=== PATIENT | female | born 1980 | race Caucasian/White ===

== ENCOUNTER 2023-10-13 09:59 | Emergency (ER) | payer OTHER, SELFPAY ==
--- NOTE | 2023-10-13 10:08 | ED.URI ---
HPI - URI/Sore Throat General Chief Complaint: Upper Respiratory Infection Stated Complaint: Sore Throat Time Seen by Provider: 10/13/23 10:24 Source: patient and RN notes reviewed Mode of arrival: ambulatory Limitations: no limitations History of Present Illness HPI Narrative: 43-year-old female presents with concern for 3 day history of nasal congestion, drainage, cough, sore throat, hoarse voice. She reports body aches, chills, she has not measured a temperature. She has not taken anything [id number]. She denies known sick contacts. MD elicited complaint: cough and sore throat Related Data Home Medications Medication Instructions Recorded Confirmed atorvastatin 20 mg tablet 20 mg PO DAILY 10/13/23 10/13/23 buspirone 10 mg tablet 10 mg PO DAILY 10/13/23 10/13/23 gabapentin 100 mg capsule 200 mg PO TID 10/13/23 10/13/23 lamotrigine 200 mg tablet 200 mg PO HS 10/13/23 10/13/23 metformin 500 mg tablet 500 mg PO BID 10/13/23 10/13/23 pantoprazole 40 mg tablet,delayed 40 mg PO BID 10/13/23 10/13/23 release sertraline 50 mg tablet 50 mg PO DAILY 10/13/23 10/13/23 Allergies Allergy/AdvReac Type Severity Reaction Status Date / Time Penicillins Allergy Mild Rash Verified 10/13/23 10:00 sumatriptan Allergy Mild Rash Verified 10/13/23 10:00 Review of Systems Review of Systems: CONSTITUTIONAL: Reports malaise, chills, sweats. Denies fever. EYES: Denies visual changes, redness, or discharge. ENT: Reports rhinorrhea, congestion, and sore throat. CARDIOVASCULAR: Denies chest pain, palpitations, or edema. RESPIRATORY: Reports cough. Denies dyspnea. GASTROINTESTINAL: Denies abdominal pain, nausea, vomiting, diarrhea SKIN: Denies rash or itching. MUSCULOSKELETAL: Reports myalgia. NEUROLOGIC: Denies headache. All systems reviewed & are unremarkable except as noted in HPI and below PMFSH Comments At time of signature, agree with nursing past medical, surgical, social and family history. There is no relevant family history pertinent to the presenting complaint Exam Narrative: GENERAL: Nontoxic-appearing, well-nourished, and in no acute distress. HEAD: Normocephalic EYES: PERRLA, conjunctivae clear ENT: Nares clear. Mucous membranes moist. TM pearly leon with dull light reflex bilaterally; no tragal tenderness. Oropharynx erythematous without lesions. Tonsils enlarged and without exudate, no drooling, no hoarseness, no trismus, uvula midline. NECK: Supple. No lymphadenopathy CHEST: Clear to auscultation, breath sounds equal. No wheezing, rhonchi, rales, or stridor. No respiratory distress, speaks in full sentences. HEART: Regular rate and rhythm. No murmur heard. SKIN: Warm, dry, no rash. NEURO: Alert and oriented x3. PSYCH: Normal mood and affect Course Course Emergency Course: Patient is aware of diagnosis, understands and agrees to treatment plan. Anticipatory guidance given. Patient agrees to follow-up as directed and is aware of reasons to seek care at the emergency department. Portions of this record may have been created with voice recognition software Level of Care: Express Care Visit Vital Signs Vital signs: Reviewed. MDM - URI/Sore Throat MDM Narrative Medical decision making narrative: Differential diagnosis considered: Frye virus, strep pharyngitis, allergic rhinitis, upper respiratory tract infection, sinusitis, rhinosinusitis, nasopharyngitis. viral pharyngitis, otitis media, otitis externa, pneumonia, bronchitis, viral cough syndrome, viral syndrome, and influenza. Exam findings show no acute concerns or changes; patient is non-toxic appearing and is in no distress. Patient is appropriate for outpatient treatment and follow-up. Lab Data Attestation: I reviewed the patient's lab results. Critical Care Time Critical Care Time Critical Care Time: No Discharge Plan Discharge Clinical Impression: Acute streptococcal pharyngitis Patient Disposition: Home, Self-Care Condition:
[2023-10-13 10:17] VITALS: BP 124/58; PULSE 96; RESP 22; TEMP 37.8; O2SAT 96
== END 2023-10-13 10:35 | disposition home or self-care (01) ==
PROVIDERS: Emergency Provider Nurse Practitioner; PCP Physician Assistant
DX: J02.0 Streptococcal pharyngitis (principal); Z20.822 Contact with and (suspected) exposure to COVID-19; E78.00 Pure hypercholesterolemia, unspecified; K21.9 Gastro-esophageal reflux disease without esophagitis; R73.03 Prediabetes; F41.9 Anxiety disorder, unspecified; F32.A Depression, unspecified
CPT/HCPCS: 87426; 87880; 99203; G0463

== ENCOUNTER 2024-02-02 08:22 | Emergency (ER) | payer OTHER, SELFPAY ==
[2024-02-02 08:31] VITALS: BP 155/85; PULSE 88; RESP 19; TEMP 36.4; O2SAT 94
--- NOTE | 2024-02-02 08:51 | ED_ITS ---
HPI - URI/Sore Throat General Chief Complaint: Upper Respiratory Infection Stated Complaint: Headache/Sore Throat Time Seen by Provider: 02/02/24 08:51 Source: patient, RN notes reviewed and old records reviewed Mode of arrival: ambulatory Limitations: no limitations History of Present Illness HPI Narrative: Patient presents with complaints of headache and sore throat 3 days ago. She has been taking Excedrin and ibuprofen with minimal relief. She denies any fever, chills, sweats. Related Data Home Medications Medication Instructions Recorded Confirmed adalimumab-adaz 40 mg/0.4 mL 40 mg subcut WEEKLY 10/13/23 10/13/23 subcutaneous pen injector (Hyrimoz(CF) Pen) atorvastatin 20 mg tablet 20 mg PO DAILY 10/13/23 10/13/23 buspirone 10 mg tablet 10 mg PO DAILY 10/13/23 10/13/23 lamotrigine 200 mg tablet 200 mg PO HS 10/13/23 10/13/23 metformin 500 mg tablet 500 mg PO BID 10/13/23 10/13/23 pantoprazole 40 mg tablet,delayed 40 mg PO BID 10/13/23 10/13/23 release sertraline 50 mg tablet 50 mg PO DAILY 10/13/23 10/13/23 Allergies Allergy/AdvReac Type Severity Reaction Status Date / Time Penicillins Allergy Mild Rash Verified 02/02/24 08:28 sumatriptan Allergy Mild Rash Verified 02/02/24 08:28 Review of Systems Review of Systems: All systems reviewed & are unremarkable except as noted in HPI and below Constitutional: Constitutional: Reports no additional constitutional complaints and Reports headache(s) ENT: Reports system reviewed and no additional complaints, except as documented and Reports sore throat Cardiovascular: Cardiovascular: Reports no additional cardiovascular complaints Respiratory: Respiratory: Reports no additional respiratory complaints Gastrointestinal: Gastrointestinal: Reports no additional gastrointestinal complaints PMFSH Comments At the time of my signature, I reviewed and agree with the nursing past medical, surgical, social, and family history. There is no relevant family history pertinent to the patient complaint. Exam Const: General: cooperative, no acute distress, alert and awake Orientation/consciousness: oriented to person, oriented to place and oriented to time HENMT: Head: normal to inspection Mouth: Yes moist mucous membranes Throat: abnormal tonsil bilateral erythema, exudates and hypertrophy 1+ Resp: Effort & Inspection: normal respiratory effort and able to speak in complete sentences Auscultation: clear to auscultation bilaterally, no crackles, no rales, no rhonchi and no wheezes Cardio: Palpation: normal PMI Rate: regular rate Rhythm: regular rhythm Heart sounds: S1 normal heart sound present and S2 normal heart sound present Neuro: General: oriented to person, oriented to place and oriented to time Cranial nerves: Yes CN's II-XII intact bilaterally Psych: Appearance: grossly normal Thought process: Normal thought process present Insight: Good insight present (Psych) Judgement: Good judgement present (Psych) Course Course Level of Care: Express Care Visit Vital Signs Vital signs: Vital Signs Temperature 97.5 F L 02/02/24 08:31 Pulse Rate 88 02/02/24 08:31 Respiratory Rate 19 02/02/24 08:31 Blood Pressure 155/85 H 02/02/24 08:31 Pulse Oximetry 94 02/02/24 08:31 Oxygen Delivery Room Air 02/02/24 08:31 Temperature 97.5 F L 02/02/24 08:31 Pulse Rate 88 02/02/24 08:31 Respiratory Rate 19 02/02/24 08:31 Blood Pressure 155/85 H 02/02/24 08:31 Pulse Oximetry 94 02/02/24 08:31 Oxygen Delivery Room Air 02/02/24 08:31 Reviewed MDM - URI/Sore Throat MDM Narrative Medical decision making narrative: Positive rapid strep, penicillin allergic patient. Treat with azithromycin. She is nontoxic appearing, stable for discharge home on p.o. antibiotic therapy Discharge instructions reviewed with patient, as well as provided in writing per nursing staff. The instructions also include specific and strict return/GO TO THE ER as well as f/u information. All questions have been answered, and the patient deny any further questions with discharge and discharge plan. Some parts of this dictation were generated by voice recognition software and may contain typographical and/or grammatical inaccuracies. Differential Diagnosis Differential diagnosis: Likely upper respiratory infection, otitis media, sinusitis, viral infection, influenza and pharyngitis Medical Records Attestation: I reviewed the patient's medical records. Lab Data Attestation: I reviewed the patient's lab results. Discharge Plan Discharge Clinical Impression: Pharyngitis Qualifiers: Pharyngitis/tonsillitis etiology: streptococcus Qualified Code(s): J02.0 - Streptococcal pharyngitis Patient Disposition: Home, Self-Care Condition: Stable Instructions: Antibiotic Form, Strep Throat (ED) Additional Instructions: Take medications as prescribed. Follow with primary care provider. Emergency department for new or worsening symptoms. Discard toothpaste and toothbrush after 24-48 hours of antibiotic therapy Patient Language: Icelandic Prescriptions: New azithromycin 250 mg tablet See Rx Instructions PO .COMPLEX Qty: 6 0RF Rx Instructions: For 250 mg dose pack: take 500 mg today (day 1), then 250 mg for 4 days (days 2-5) No Action metformin 500 mg tablet 500 mg PO BID atorvastatin 20 mg tablet 20 mg PO DAILY lamotrigine 200 mg tablet 200 mg PO HS pantoprazole 40 mg tablet,delayed release (DR/EC) 40 mg PO BID buspirone 10 mg tablet 10 mg PO DAILY sertraline 50 mg tablet 50 mg PO DAILY adalimumab-adaz [Hyrimoz(CF) Pen] 40 mg/0.4 mL pen injector 40 mg SUBCUT WEEKLY Follow-up/Referrals: Stacy,OLIVE Lemos [Primary Care Provider] - 2 Weeks Stand Alone Forms: Work/School Release IP Time of Disposition: 09:20
[2024-02-02 09:12] LABS: EDSTREPNEGPOS1 Positive (Negative)
== END 2024-02-02 09:25 | disposition home or self-care (01) ==
PROVIDERS: Emergency Provider Nurse Practitioner Family; PCP Physician Assistant
DX: J02.0 Streptococcal pharyngitis (principal); E78.00 Pure hypercholesterolemia, unspecified; K21.9 Gastro-esophageal reflux disease without esophagitis; R73.03 Prediabetes; F41.9 Anxiety disorder, unspecified; F32.A Depression, unspecified
CPT/HCPCS: 87880; 99213; G0463

== ENCOUNTER 2024-11-23 08:06 | Emergency (ER) | payer OTHER, SELFPAY ==
[2024-11-23 08:17] VITALS: BP 121/71; PULSE 76; RESP 18; TEMP 36.2; O2SAT 97
--- NOTE | 2024-11-23 08:22 | ED_ITS ---
HPI - Skin/Abscess/Foreign Bdy General Chief complaint: Skin/Abscess/Foreign Body Stated complaint: Skin Issues Time Seen by Provider: 11/23/24 08:07 patient presents to the [facility] with complaints worsening hidradenitis flare up. Patient noted about 5 days ago started with small abscess to abdominal fluid. Noted they have been using warm compresses and very usual remedies and this has opened and drained but now have a new spot that is significantly painful and burning. No drainage coming from this area. Patient does have a standing order of medication from Dermatology, noted she has been doing topical chlorhexidine washes. Does have a follow-up with Dermatology but usually if the doxycycline is not working needs to change to Bactrim. Also has then clindamycin topical before. Denies fever, chills, body aches Related Data Home Medications ?Medication ?Instructions ?Recorded ?Confirmed ?Last Taken ?Type atorvastatin 20 mg tablet 20 mg PO DAILY 10/13/2305/06 Unknown History buspirone 10 mg tablet 10 mg PO DAILY 10/13/2305/06 Unknown History acyclovir 400 mg tablet mg 11/23/24 Unknown History doxycycline monohydrate 100 mg mg 11/23/24 Unknown Hi story capsule metformin 1,000 mg tablet mg 11/23/24 Unknown History sertraline 100 mg tablet mg 11/23/24 Unknown History Allergies Allergy/AdvReac Type Severity Reaction Status Date / Time Penicillins Allergy Mild Rash Verified 11/23/24 08:23 sumatriptan Allergy Mild chest Verified 11/23/24 08:23 tightness Review of Systems Constitutional: Constitutional: Reports as per HPI, Denies chills, Reports fatigue, Denies fever(s) and Denies weakness Eyes: Eyes: Reports no additional eye complaints Cardiovascular: Cardiovascular: Reports no additional cardiovascular complaints Respiratory: Respiratory: Reports no additional respiratory complaints Gastrointestinal: Gastrointestinal: Reports no additional gastrointestinal complaints Genitourinary: Genitourinary: Reports no additional female genitourinary complaints Musculoskeletal: Musculoskeletal: Reports as per HPI and Denies myalgias Integumentary/Breasts: Skin/Breast: Reports as per HPI, Reports erythema and Reports skin ulcer Comments: burning pain, abscesses noted abdominal folds Neurologic: Reports as per HPI, Denies vertigo, Denies dizziness, Denies headache(s) and Denies weakness Psychiatric: Psychiatric: Reports no additional psychiatric complaints Endocrine: Endocrine: Reports no additional endocrine complaints Hematologic/Lymphatic: Hematologic/Lymphatic: Reports no additional hematologic/lymphatic complaints Allergic/Immunologic: Allergic/Immunologic: Reports no additional allergic/immunologic complaints Exam Const: General: healthy appearing and no acute distress Nutritional Appearance: well nourished Orientation/consciousness: patient oriented x3 Limitations: no limitations Resp: Effort & Inspection: normal respiratory effort Auscultation: clear to auscultation bilaterally Cardio: Rate: regular rate Rhythm: regular rhythm GI: Inspection: non-distended GI Palp: Yes Soft to palpation, Yes Tenderness to palpation present (GI) ( over area of abscess), No Guarding due to palpation present (GI), No Rigid due to palpation, No Hernia present, No Palpable mass present and No Rebound tenderness present Auscultation: normal bowel sounds Skin: General skin exam: normal color Wounds: wounds noted Other: two small abscesses to abdominal folds. One draining with no fluctuance but slight induration. One with significant firmness, tenderness with palpation. No fluctuance and mild induration at this time. Neuro: General: patient oriented x3 Speech: normal speech Gait exam (Neuro): Normal gait present Psych: Mental Status: mental status grossly normal Affect: normal affect Attitude: cooperative Course Course Level of Care: Express Care Visit Vital Signs Vital signs: Vital Signs Temperature 97.2 F L 11/23/24 08:17 Pulse Rate 76 11/23/24 08:17 Respiratory Rate 18 11/23/24 08:17 Blood Pressure 121/71 11/23/24 08:17 Pulse Oximetry 97 11/23/24 08:17 Oxygen Delivery Room Air 11/23/24 08:17 Temperature 97.2 F L 11/23/24 08:17 Pulse Rate 76 11/23/24 08:17 Respiratory Rate 18 11/23/24 08:17 Blood Pressure 121/71 11/23/24 08:17 Pulse Oximetry 97 11/23/24 08:17 Oxygen Delivery Room Air 11/23/24 08:17 MDM - Skin/Abscess/Foreign Bdy MDM Narrative Medical decision making narrative: spoke with patient about overall treatment options and continue normal treatment with current medications and manufacturing controller recommendations. Also spoke about possible addition of tea tree body washes. Will change patient to Bactrim The patient was evaluated by myself in the express care. History is obtained from patient who is an independent historian and physical exam was performed. Available medical records were reviewed at this time. Exam findings show no acute concerns or changes; patient is non-toxic appearing and is in no distress. Patient is appropriate for outpatient treatment and follow-up. I have evaluated and discussed social determinants of health with the patient that could potentially impact subsequent diagnosis and treatment plans. Differential diagnosis and treatment plan were discussed with the patient. Patient agrees with discussion and after shared medical decision making agrees with plan of care. All questions were answered to the patient's satisfaction. Differential Diagnosis Differential diagnosis: Likely abscess of skin or subcutaneous tissue, cellulitis, eczema, impetigo and contact dermatitis Medical Records Attestation: I reviewed the patient's medical records. Discharge Plan Discharge Clinical Impression: Abscess of skin of abdomen Patient Disposition: Home Condition: Stable Instructions: Antibiotic Form, Abscess Follow-up (ED), Warm Compress or Soak (ED) Additional Instructions: DO NOT pick at the area. This will only make the area worse and drive infection deeper. DO NOT pick at the area. This will only make the area worse and drive infection deeper. Clean with soap and water only; Avoid using alcohol and peroxide. apply warm compresses for 20 minute several times a day to help soften the drainage, this may help open the area and cause drainage to come out. Alternate Tylenol/ibuprofen for as needed for pain Acetaminophen(Tylenol) 650-1000mg every 4-6hours with max of 4000mg/day. Nonsteroidal anti-inflammatory agent (NSAIDs-ibuprofen): 400mg every 4-6hours with max 2400mg/day Take antibiotic until it's gone. If you began to have multiple or reoccurring abscesses in these areas may use daily tea tree body washes or weekly chlorhexidine/Hibiclens washes, bleach baths, or Phisohex change razors or any shaving products you have used around this area. Using fresh towel daily while areas flared up. Please schedule a follow up visit with your personal physician for further evaluation and treatment within 3-5days OR if your symptoms persist, change or worsen significantly before you can contact your personal physician then please, without delay, go to the emergency department for further evaluation. Patient Language: Nigerien Prescriptions: New sulfamethoxazole-trimethoprim [Bactrim DS] 800-160 mg tablet 1 tablet PO Q12H Qty: 20 0RF methylprednisolone [Medrol (Michael)] 4 mg tablets,dose pack See Rx Instructions .ROUTE .COMPLEX Qty: 21 0RF Rx Instructions: for 6 days clindamycin phosphate 1 % gel 1 applic topical BID Qty: 60 0RF No Action sertraline 100 mg tablet acyclovir 400 mg tablet doxycycline monohydrate 100 mg capsule metformin 1,000 mg tablet atorvastatin 20 mg tablet 20 mg PO DAILY buspirone 10 mg tablet 10 mg PO DAILY Follow-up/Referrals: Stacy,OLIVE Lemos [Primary Care Provider, Unknown] Time of Disposition: 08:37
== END 2024-11-23 08:48 | disposition home or self-care (01) ==
PROVIDERS: Emergency Provider Nurse Practitioner Family; PCP Physician Assistant
DX: L02.211 Cutaneous abscess of abdominal wall (principal)
CPT/HCPCS: 99213; G0463